=== PATIENT | male | born 2000 | race Caucasian/White ===

== ENCOUNTER 2022-04-24 14:55 | Outpatient (CLI) | payer OTHER, SELFPAY ==
[2022-04-24 21:22] LABS: Blood Urea Nitrogen* 15 mg/dL (5-24); Carbon Dioxide* 26 mmol/L (20-32); Chloride* 103 mmol/L (96-114); Creatinine* 0.9 mg/dL (0.5-1.5); Estimated Glomerular Filt Rate 123 ml/min; Potassium* 4.4 mmol/L (3.6-5.1); Sodium* 139 mmol/L (135-149)
[2022-04-24 21:23] LABS: Calcium* 9.7 mg/dL (8.4-10.6); Glucose* 95 mg/dL (60-115)
== END 2022-04-24 14:56 | disposition home or self-care (01) ==
LOC: FRMREF 14:56
PROVIDERS: PCP Emergency Medicine; Visit Provider Nurse Practitioner Family
DX: Z01.818 Encounter for other preprocedural examination (principal)
CPT/HCPCS: 80048